=== PATIENT | male | born 1960 | race Caucasian/White ===

== ENCOUNTER → 2020-08-17 | Outpatient (CLI) | payer OTHER ==
[~2020-08-17] MED LIST: AMLO5TAB4 PO; CATHETER FLUSH 10 ML SYR IV PRN; FLUO40CA12 PO; HYDR25TA4 PO; METO100T12 PO; MTP100TCR PO
--- NOTE | 2020-08-17 13:58 | Diagnostic Imaging Report ---
INDICATION: Right upper quadrant pain. TECHNIQUE: Patient was administered 5.4 mCi technetium 99m Choletec intravenously and imaging over the abdomen was performed. After 45 minutes, patient ingested one can of Ensure and a gallbladder ejection fraction was calculated. FINDINGS: There is homogeneous uptake of activity by the liver with prompt excretion of activity into the gallbladder and common duct. There is normal passage of activity into the small bowel. Gallbladder ejection fraction is slightly low at 33%. Normal values are 35% or greater. IMPRESSION: 1. Patent cystic duct and common bile duct. 2. Slightly low gallbladder ejection fraction of 33%. Dictated by: Dictated on workstation # [id number]
== END ==
LOC: CARD 09:48
PROVIDERS: ATTEND Internal Medicine
DX: R10.11 Right upper quadrant pain (principal)
CPT/HCPCS: 78227; A9537

== ENCOUNTER 2020-09-06 07:17 | Outpatient (CLI) | payer OTHER ==
[~2020-09-06] VITALS: Ht 167 cm; Wt 82.0 kg
[~2020-09-06 07:17] MED LIST changes: -CATHETER FLUSH 10 ML SYR IV PRN
[2020-09-06] MEDS ORDERED: ASPI-808 PO (12:33)
== END 2020-09-06 12:56 | disposition home or self-care (01) ==
LOC: PREOP 07:17 → EDSTATUS 13:30
PROVIDERS: ATTEND Surgery
DX: Z01.818 Encounter for other preprocedural examination (principal)

== ENCOUNTER 2020-09-13 07:33 | Day surgery (SDC) | payer OTHER ==
[2020-09-13] VITALS (11 sets, daily range): BP systolic 90–179; BP diastolic 62–109
[~2020-09-13] VITALS: Ht 167 cm; Wt 82.0 kg
[~2020-09-13 07:33] MED LIST changes: +ASPI-808 PO
[2020-09-13] MEDS ORDERED: ceFAZolin 2 GM IV Premixed 50 ML IV ONE (07:45)
[2020-09-13] MEDS ORDERED: LACTATED RINGERS 1,000 ML IV PRN (07:45)
--- NOTE | 2020-09-13 07:57 | Progress Note-Pre Operative ---
Pre-Operative Progress Note H&P Reviewed The H&P was reviewed, patient examined and no changes noted. Date Seen by Provider: Sep 13, 2020 Time Seen by Provider: 07:57 Date H&P Reviewed: Sep 13, 2020 Time H&P Reviewed: 07:57 Pre-Operative Diagnosis: epigastric abd pain, biliary dyskinesia BERTO MADSEN DO Sep 13, 2020 07:57
[2020-09-13] MEDS ORDERED: MIDAZOLAM 2 MG/2 ML (VERSED) VIAL ONE (08:32)
[2020-09-13] MEDS ORDERED: fentaNYL INJ 100 MCG/2 ML AMP ONE ×2 (08:32→09:59)
[2020-09-13] MEDS ORDERED: IOPAMIDOL 61% 30 ML (ISOVUE 300) VIAL ONE (08:35)
[2020-09-13] MEDS ORDERED: LIDOCAINE PF 2% 5 ML (XYLOCAINE) VIAL ONE (09:43)
[2020-09-13] MEDS ORDERED: ATROPINE INJ 0.4 MG/ML SDV ONE (09:43)
[2020-09-13] MEDS ORDERED: ONDANSETRON 4 MG/2 ML (SDV) Z0FRAN ONE (09:43)
[2020-09-13] MEDS ORDERED: NEOSTIGMINE 3 MG/3 ML VIAL ONE (09:43)
[2020-09-13] MEDS ORDERED: GLYCOPYRROLATE 0.2 MG/ML (ROBINUL) 2 ML VIAL ONE (09:43)
[2020-09-13] MEDS ORDERED: proPOfol 200 MG/20 ML (DIPRIVAN) VIAL IV ONE (09:43)
[2020-09-13] MEDS ORDERED: ROCURONIUM 10 MG/ML 5 ML SYRINGE IV ONE (09:43)
[2020-09-13] MEDS ORDERED: LIDOCAINE/EPI 1%-1:100,000 (XYLOCAINE) 20ML INJ ONE (09:45)
--- NOTE | 2020-09-13 10:06 | Progress Note-Post Operative ---
Post-Operative Progess Note Surgeon (s)/Library Attendant (s) Surgeon BERTO MADSEN DO Library Attendant: Dr. Dick to assist in retraction dissection and closure Pre-Operative Diagnosis epigastric abd pain, biliary dyskinesia Post-Operative Diagnosis same Procedure & Operative Findings Date of Procedure 09/13/20 Procedure Performed/Findings PROCEDURE: Laparoscopic cholecystectomy with intraoperative cholangiogram. COMPLICATIONS: None. PROCEDURE: The patient was taken to the operating suite and was prepped and draped in sterile fashion. A surgical pause was performed. Just superior to the umbilicus, a 12 mm incision was made. Dissection was taken down to the fascia, which was then scored and grasped with a Robert and the abdomen was then entered. A 0 Vicryl suture was placed in a vzuveh-ga-zvyax fashion and a Gan trocar was placed and secured. Pneumoperitoneum was achieved. A 5mm trochar place in the subxyphoid and 2 in the right upper quadrant. The gallbladder was then grasped and elevated. The cystic duct, and cystic artery were then dissected out. Clip was placed on the distal portion of the cystic duct which was then partially transected. An arrow catheter was inserted into the duct. The cholangiogram was then performed. No filing defects and contrast made its way into the duodenum. Catheter removed. Clips were placed on proximal portion of the cystic duct and then the duct was then transected. Clips were placed along the proximal and distal portion of the cystic artery which was then transected. Hook cautery was used to dissect the gallbladder from the gallbladder fossa achieving hemostasis. The gallbladder was placed in an Endobag and removed through the 12 mm trocar site. The abdomen was then reinspected. Copious amounts of irrigation were used to irrigate the abdomen and there were no signs of active bleeding. Hemostasis had been achieved. The 12 mm fascial defect was then closed with 0 Vicryl suture that had been placed in a shffvb-ak-wloyz fashion. The abdomen was then desufflated, the trocars were removed. The abdomen was then washed and dried. The skin was then closed using 4-0 Monocryl in a subcuticular fashion. The abdomen was washed and dried and Skin Affix was place over incisions. Patient tolerated the procedure well without any complications and was taken to the recovery room in stable condition. Anesthesia Type general Estimated Blood Loss Estimated blood loss (mL): minimal Specimens/Packing Specimens Removed gallbladder BERTO MADSEN DO Sep 13, 2020 10:06
[2020-09-13] MEDS ORDERED: SEVOFLURANE (ULTANE) 15 ML INHAL SOLN ONE (10:13)
[2020-09-13] MEDS ORDERED: ACHD5005 PO (10:14)
[2020-09-13] MEDS ORDERED: DOCU-143 PO (10:14)
[2020-09-13] MEDS ORDERED: MEPERIDINE (DEMEROL) INJ 50 MG/ML IVP ONE (10:15)
[2020-09-13] MEDS ORDERED: ONDANSETRON 4 MG/2 ML (SDV) Z0FRAN IVP PRN (10:15)
[2020-09-13] MEDS ORDERED: morphine INJ 10 MG/ML 1ML (SYR OR VIAL) IVP ONE (10:15)
[2020-09-13] MEDS ORDERED: fentaNYL INJ 100 MCG/2 ML AMP IVP ONE (10:15)
[2020-09-13] MEDS ORDERED: PROMETHAZINE INJ 25 MG/ML (PHENERGAN) AMP IVP ONE (10:15)
--- NOTE | 2020-09-13 10:15 | Discharge Inst-Simple/Standard ---
Discharge Inst-Standard Discharge Medications New, Converted or Re-Newed RX: RX on Chart Patient Instructions/Follow Up Plan of Care/Instructions/FU: 2-3 weeks Lenny Activity as Tolerated: No Discharge Diet: Regular Diet Other Inst to Patient Follow up Appt: Make appointment for 2-3 weeks. Instructions: No lifting greater than 10 pounds. No strenuous activity. May shower in 24 hours, no tub bath or soaking. Use incentive spirometer at home as directed. No Smoking Skin/Wound Care: You have special glue over incision, it will fall off on it's own. Symptoms to Report: Appetite Changes, Extremity Discoloration, Numbness/Tingling, Swelling Increased, Bleeding Excessive, Eyesight Changes, Pain Increased, Urine Color Change, Constipation(Persistent), Fever over 101 degree F, Pain/Pressure in chest, Urinating Difficulty, Cough Up/Vomit Blood, Heart Beat Irreg/Pounding, Pain/Pressure in jaw, Vaginal Bleeding Increase, Cramps in feet or legs, Lightheadedness, Pain/Pressure in shoulder, Diarrhea(Persistent), Memory Changes Suddenly, Questions/Concerns, Weight gain consecutive days, Dizziness/Fainting, Nausea/Vomiting, Shortness of Breath, Weight gain over 2 pounds. If eyes or skin turn yellow notify physician. If questions or concerns contact your physician Or seek help at emergency department. BERTO MADSEN DO Sep 13, 2020 10:15
--- NOTE | 2020-09-13 10:15 | Anesthesia-General Post-Op ---
General Patient Condition Mental Status/LOC: Same as Preop Cardiovascular: Satisfactory Nausea/Vomiting: Absent Respiratory: Satisfactory Pain: Controlled Complications: Absent Post Op Complications Complications None Follow Up Care/Instructions Patient Instructions None needed. Anesthesia/Patient Condition Patient Condition Patient is doing well, no complaints, stable vital signs, no apparent adverse anesthesia problems. No complications reported per nursing. JOSH FLEMING CRNA Sep 13, 2020 10:15
[2020-09-13] MEDS ORDERED: hydrALAZINE (APESOLINE) 20 MG/ML VIAL IV ONE (10:30)
[2020-09-13] MEDS ORDERED: HYDROcodone/APAP 5 MG/325 MG (LORTAB) TAB ONE (11:17)
[2020-09-13] MEDS ORDERED: HYDROcodone/APAP 5 MG/325 MG (LORTAB) TAB PO PRN (11:30)
--- NOTE | 2020-09-13 13:04 | Diagnostic Imaging Report ---
INDICATION: Fluoroscopy for intraoperative cholangiogram. Fluoroscopy was provided in the OR during intraoperative cholangiogram. 27 seconds fluoroscopic time was utilized. 29 images were obtained. Images demonstrate contrast being injected via the cystic duct remnant. Intrahepatic and extra hepatic bile ducts are normal caliber. No filling defects are seen. There is contrast flowing into the duodenum. IMPRESSION: Fluoroscopy during intraoperative cholangiogram. Dictated by: Dictated on workstation # [id number]
== END 2020-09-13 13:20 | disposition home or self-care (01) ==
LOC: SDC 07:33
PROVIDERS: ATTEND Surgery
DX: K81.1 Chronic cholecystitis (principal); K82.8 Other specified diseases of gallbladder; I10 Essential (primary) hypertension; F41.9 Anxiety disorder, unspecified; D37.6 Neoplasm of uncertain behavior of liver, gallbladder and bile ducts; Z79.899 Other long term (current) drug therapy
CPT/HCPCS: 76000; 87081; 88304

== ENCOUNTER → 2020-09-28 | Outpatient (CLI) | payer OTHER ==
[~2020-09-28] MED LIST changes: +ACHD5005 PO; +DOCU-143 PO
--- NOTE | 2020-09-28 11:58 | Diagnostic Imaging Report ---
PROCEDURE: US Scrotum. TECHNIQUE: Multiple Real-time grayscale images were obtained over the scrotum in various projections bilaterally. INDICATION: Left hydrocele. FINDINGS: The right testicle measures 4.3 x 2.0 x 2.8 cm and the left testicle measures 3.8 x 2.6 x 2.9 cm. Both testes show homogeneous echotexture. No discrete testicular mass is seen. There is blood flow to both testes. The right epididymis is unremarkable. The left epididymis was not well visualized. There is a small right and a large left hydrocele. No varicocele is detected. IMPRESSION: 1. No evidence of testicular mass or vascular compromise. 2. Bilateral hydroceles, left largest. Dictated by: Dictated on workstation # [id number]
== END ==
LOC: RAD 10:30
PROVIDERS: ATTEND Urology
DX: N43.3 Hydrocele, unspecified (principal)
CPT/HCPCS: 76870

== ENCOUNTER 2020-10-09 05:42 | Outpatient (CLI) | payer OTHER ==
[~2020-10-09] VITALS: Ht 167.7 cm; Wt 81.8 kg
[2020-10-09] MEDS ORDERED: PSYL1PAC10 PO (09:55)
[2020-10-10] MEDS ORDERED: TRM50T PO (09:08)
[2020-10-10] MEDS ORDERED: CEPH500T PO (09:08)
== END 2020-10-09 11:13 | disposition home or self-care (01) ==
LOC: PREOP 05:42
PROVIDERS: ATTEND Urology
DX: Z01.818 Encounter for other preprocedural examination (principal)

== ENCOUNTER 2020-10-10 07:29 | Day surgery (SDC) | payer OTHER ==
[2020-10-10] VITALS (10 sets, daily range): BP systolic 129–168; BP diastolic 92–109
[~2020-10-10] VITALS: Ht 167.7 cm; Wt 81.8 kg
[~2020-10-10 07:29] MED LIST changes: +PSYL1PAC10 PO
--- NOTE | 2020-10-10 07:50 | Progress Note-Pre Operative ---
Pre-Operative Progress Note H&P Reviewed The H&P was reviewed, patient examined and no changes noted. Date Seen by Provider: Oct 10, 2020 Time Seen by Provider: 07:50 Date H&P Reviewed: Oct 10, 2020 Time H&P Reviewed: 07:50 Pre-Operative Diagnosis: LT LARGE HYDROCELE ISAMAR KEY MD Oct 10, 2020 07:50
[2020-10-10] MEDS ORDERED: ONDANSETRON 4 MG/2 ML (SDV) Z0FRAN ONE (07:59)
[2020-10-10] MEDS ORDERED: LIDOCAINE PF 2% 5 ML (XYLOCAINE) VIAL ONE (07:59)
[2020-10-10] MEDS ORDERED: proPOfol 200 MG/20 ML (DIPRIVAN) VIAL IV ONE (07:59)
[2020-10-10] MEDS ORDERED: fentaNYL INJ 100 MCG/2 ML AMP ONE (08:00)
[2020-10-10] MEDS ORDERED: MIDAZOLAM 2 MG/2 ML (VERSED) VIAL ONE (08:00)
[2020-10-10] MEDS: LACTATED RINGERS 1,000 ML IV PRN ×2 (08:03→09:34)
[2020-10-10] MEDS ORDERED: ceFAZolin INJECTION 1,000 MG in WATER (STERILE) FOR INJECTION 10 ML IV ONE (08:15)
[2020-10-10] MEDS ORDERED: LACTATED RINGERS 1,000 ML IV PRN (08:15)
--- NOTE | 2020-10-10 08:30 | Progress Note-Post Operative ---
Post-Operative Progess Note Surgeon (s)/Field Organizer (s) Surgeon ISAMAR KEY MD Field Organizer: NONE Pre-Operative Diagnosis LT LARGE HYDROCELE Post-Operative Diagnosis SAME Procedure & Operative Findings Date of Procedure 10/10/20 Procedure Performed/Findings LY HYDROCELECTOMY Anesthesia Type GENERAL Estimated Blood Loss Estimated blood loss (mL): NONE Specimens/Packing Specimens Removed NONE Packin/4" SEBASTIAN DRAIN ISAMAR KEY MD Oct 10, 2020 08:30
--- NOTE | 2020-10-10 08:34 | Discharge Inst-Urology ---
Discharge Inst-Urology Reconcile Patient Problems Problems Reviewed?: Yes Final Diagnosis LT LARGE HYDROCELE Patient Instructions/Follow Up Plan/Assessment/Instructions Patient to come to office tomorrow 9am to DC drain then may start showers, no bath Please make appointment to been seen in office in 2 weeks. REST till then and wear scrotal support Ice to scrotum in RR and at home for 48 hours and then PRN Hold ASA Keep bowels soft and moving Increase oral fluids for 48 hours and then as needed. Diet as tolerated. If questions or concerns contact your physician Or seek help at emergency department. ISAMAR KEY MD Oct 10, 2020 08:34
[2020-10-10] MEDS ORDERED: TRM50T PO (09:08)
[2020-10-10] MEDS ORDERED: CEPH500T PO (09:08)
[2020-10-10] MEDS ORDERED: SEVOFLURANE (ULTANE) 15 ML INHAL SOLN ONE (09:26)
[2020-10-10] MEDS ORDERED: GLYCOPYRROLATE 0.2 MG/ML (ROBINUL) 2 ML VIAL ONE (09:29)
[2020-10-10] MEDS ORDERED: ATROPINE INJ 0.4 MG/ML SDV ONE (09:29)
[2020-10-10] MEDS ORDERED: fentaNYL INJ 100 MCG/2 ML AMP IVP ONE (09:45)
[2020-10-10] MEDS ORDERED: morphine INJ 10 MG/ML 1ML (SYR OR VIAL) IVP ONE (09:45)
[2020-10-10] MEDS ORDERED: MEPERIDINE (DEMEROL) INJ 50 MG/ML IVP ONE (09:45)
[2020-10-10] MEDS ORDERED: KETOROLAC 30 MG/ML VIAL IVP ONE (09:45)
[2020-10-10] MEDS: ONDANSETRON 4 MG/2 ML (SDV) Z0FRAN IVP PRN ×2 (10:24→10:36)
--- NOTE | 2020-10-10 10:54 | Anesthesia-General Post-Op ---
General Patient Condition Mental Status/LOC: Same as Preop Cardiovascular: Satisfactory Nausea/Vomiting: Absent Respiratory: Satisfactory Pain: Controlled Complications: Absent Post Op Complications Complications None Follow Up Care/Instructions Patient Instructions None needed. Anesthesia/Patient Condition Patient Condition Patient is doing well, no complaints, stable vital signs, no apparent adverse anesthesia problems. No complications reported per nursing. MANNIE LEGGETT CRNA Oct 10, 2020 10:54
--- NOTE | 2020-10-10 16:07 | OPERATIVE REPORT ---
DATE OF SERVICE: 10/10/2020 PREOPERATIVE DIAGNOSIS: Large left hydrocele. POSTOPERATIVE DIAGNOSIS: Large left hydrocele. OPERATION PERFORMED: Left hydrocelectomy. SURGEON: Dr. Key. ANESTHESIA: General. COMPLICATIONS: None. DESCRIPTION OF PROCEDURE: Under satisfactory general anesthesia, the patient in supine position, the abdomen, genitalia and thigh were prepped and draped in the usual sterile fashion. Incision was made in the medial raphae, carried through the left scrotal compartment. Hydrocele sac was entered and large amount of fluid was suctioned. The hydrocele sac was dissected and excised completely. The edges were everted behind the spermatic cord to prevent recurrence. Testicle and epididymis and all vascular structures as well as the vas deferens were all intact and away from the area of dissection. The testicle was replaced into the left scrotal compartment, which was drained with a quarter of an inch Kevon drain, brought through a separate stab wound at the bottom of the left scrotum secured in position with a 3-0 chromic catgut suture. Closure was performed in layers, the dartos with running 3-0 chromic catgut and the skin with interrupted 4-0 Vicryl. Telfa, fluffs and scrotal support was applied. Needle, sponge, and instrument counts were correct x2. Estimated blood loss negligible, none of which was replaced. The patient tolerated the procedure and anesthesia well and was sent to recovery room in a stable condition. Instructions were given to the and preoperatively to the patient. Job ID: [id number] DocumentID: [id number] Dictated Date: 10/10/2020 09:45:51 Cupola Man Date: 10/10/2020 16:07:08 Dictated By: ISAMAR KEY MD
== END 2020-10-10 11:45 | disposition home or self-care (01) ==
LOC: SDC 07:29
PROVIDERS: ATTEND Urology
DX: N43.3 Hydrocele, unspecified (principal); I10 Essential (primary) hypertension; R35.1 Nocturia; N40.1 Benign prostatic hyperplasia with lower urinary tract symptoms; F41.9 Anxiety disorder, unspecified; Z98.52 Vasectomy status; Z79.899 Other long term (current) drug therapy; Z82.49 Family history of ischemic heart disease and other diseases of the circulatory system; Z83.3 Family history of diabetes mellitus
CPT/HCPCS: 87081